=== PATIENT | female | born 1995 | race African-American/Black ===

== ENCOUNTER 2016-08-09 15:34 | Emergency (ER) | payer OTHER ==
--- NOTE | 2016-08-09 16:03 | ED ---
General Adult HPI - General Chief complaint: Urogenital Stated complaint: Female Time Seen by Provider: 08/09/16 15:56 Source: patient, RN notes reviewed Mode of arrival: ambulatory Limitations: no limitations - History of Present Illness Initial comments: Patient's 21-year-old female who presents emergency room today with her children chief complaint of dysuria. She does also admit to some discomfort and "dryness" in the vaginal area. Patient does admit that she is somewhat concerned about possible STDs. Never had this in the past. Denies any other complaints. Denies any pain other than during urination. Patient denies any other symptoms. Patient denies any recent fever, chills, shortness of breath, chest pain, back pain, abdominal pain, nausea or vomiting, numbness or tingling , dysuria or hematuria, constipation or diarrhea, headaches or visual changes, or any other complaints. - Related Data Home Medications Medication Instructions Recorded Confirmed Clonidine (Unknown Dose) 1 tab PO DAILY 08/09/16 08/09/16 Lisinopril [Zestril] 5 mg PO DAILY 08/09/16 08/09/16 Previous Rx's Medication Instructions Recorded Nitrofurantoin Monohyd/M-Cryst 100 mg PO Q12HR #14 cap 08/09/16 [Macrobid] Allergies Allergy/AdvReac Type Severity Reaction Status Date / Time carrot Allergy Unknown Verified 08/09/16 16:01 grass pollen Allergy Unknown Verified 08/09/16 16:01 pollen extracts Allergy Unknown Verified 08/09/16 16:01 tree and shrub pollen Allergy Unknown Verified 08/09/16 16:01 Review of Systems ROS Statement: Those systems with pertinent positive or pertinent negative responses have been documented in the HPI. ROS Other: All systems not noted in ROS Statement are negative. Past Medical History Past Medical History: No Reported History History of Any Multi-Drug Resistant Organisms: None Reported Past Surgical History: Tonsillectomy Past Psychological History: No Psychological Hx Reported Smoking Status: Never smoker Past Alcohol Use History: None Reported Past Drug Use History: None Reported General Exam - General Exam Comments Initial Comments: General: The patient is awake and alert, in no distress, and does not appear acutely ill. Eye: Pupils are equal, round and reactive to light, extra-ocular movements are intact. No nystagmus. There is normal conjunctiva bilaterally. No signs of icterus. Ears, nose, mouth and throat: There are moist mucous membranes and no oral lesions. Neck: The neck is supple, there is no tenderness or JVD. Cardiovascular: There is a regular rate and rhythm. No murmur, rub or gallop is appreciated. Respiratory: Lungs are clear to auscultation, respirations are non-labored, breath sounds are equal. No wheezes, stridor, rales, or rhonchi. Gastrointestinal: Soft, non-distended, non-tender abdomen without masses or organomegaly noted. There is no rebound or guarding present. No CVA tenderness. Bowel sounds are unremarkable. Musculoskeletal: Normal ROM, no tenderness. Strength 5/5. Sensation intact. Pulses equal bilaterally 2+. Neurological: A&O x 3. CN II-XII intact, There are no obvious motor or sensory deficits. Coordination appears grossly intact. Speech is normal. Skin: Skin is warm and dry and no rashes or lesions are noted. Psychiatric: Cooperative, appropriate mood & affect, normal judgment. Limitations: no limitations External exam: Present: normal external exam ([employer] Roxy present for exam.) Speculum exam: Present: normal speculum exam. Absent: cervical discharge, vaginal bleeding, foreign body By manual exam: Present: normal by manual exam. Absent: cervical motion tenderness, adnexal tenderness, adnexal mass Course Vital Signs 08/09/16 15:44 Temperature 99 F Pulse Rate 92 Respiratory 20 Rate Blood Pressure 177/103 O2 Sat by Pulse 100 Oximetry Medical Decision Making - Medical Decision Making Patient's urinalysis is reviewed and does show evidence for urinary tract infection. Patient does admit to dysuria will be started on antibiotics. Concern about STDs were discussed with patient. At this time patient has no discharge drainage or pain. She has been tested and cultures are pending. Patient will be discharged home on antibiotics cover for urinary tract infection. - Lab Data Lab Results 08/09/16 08/09/16 Range/Units 16:00 16:00 Urine Color Light Yellow Urine Appearance Clear (Clear) Urine pH 7.5 (5.0-8.0) Ur Specific Isabel 1.011 (1.001-1.035) Urine Protein Negative (Negative) Urine Glucose (UA) Negative (Negative) Urine Ketones Negative (Negative) Urine Blood Negative (Negative) Urine Nitrate Negative (Negative) Urine Bilirubin Negative (Negative) Urine Urobilinogen <2.0 (<2.0) mg/dL Ur Leukocyte Esterase Small H (Negative) Urine RBC 3 (0-5) /hpf Urine WBC 8 H (0-5) /hpf Ur Squamous Epith Cells 3 (0-4) /hpf Urine Bacteria Rare H (None) /hpf Urine Mucus Rare H (None) /hpf Urine HCG, Qual Not Detected (Not Detectd) Disposition Clinical Impression: UTI (urinary tract infection) Disposition: HOME SELF-CARE Condition: Good Instructions: Urinary Tract Infection in Women (ED) Additional Instructions: Please use medication as discussed. Please follow-up with family doctor in the next 2 days of symptoms have not improved. Please return to emergency room if the symptoms increase or worsen or for any other concerns. Prescriptions: Nitrofurantoin Monohyd/M-Cryst [Macrobid] 100 mg PO Q12HR #14 cap Referrals: None,Stated [Primary Care Provider] - 1-2 days Gurpreet Yanez MD [REFERRING] - 1-2 days Time of Disposition: 16:43
[2016-08-09 16:18] LABS: Appearance,Urine Clear (Clear); Bacteria,Urine Rare /hpf; Bilirubin,Urine Negative (Negative); Glucose,Urine (UA) Negative (Negative); Ketones,Urine Negative (Negative); Leukocyte Esterase,Urine Small (Negative); Mucus,Urine Rare /hpf; Nitrite,Urine Negative (Negative); PH, Urine 7.5 (5.0-8.0); Particle Count 1939; Protein,Urine Negative (Negative); RBC,Urine 3 /hpf (0-5); Specific Gravity,Urine 1.011 (1.001-1.035); Squamous Epithelial Cell,Urine 3 /hpf (0-4); UA Billing (MACRO vs. MICRO) MICRO; Urobilinogen,Urine <2.0 mg/dL (<2.0); WBC,Urine 8 /hpf (0-5)
[2016-08-09] MEDS ORDERED: cloNIDine HCL 0.1 MG TAB PO STA (16:59)
[2016-08-09 17:02] VITALS: BP 187/113; PULSE 97; RESP 16; TEMP 100.3
[2016-08-12 10:11] LABS: Chlamydia/GC Source Vaginal
== END 2016-08-09 17:13 | disposition home or self-care (01) ==
LOC: EC 15:34
DX: N39.0 Urinary tract infection, site not specified (principal); Z79.899 Other long term (current) drug therapy
CPT/HCPCS: 81001; 81025; 87070; 87086; 87205; 87491; 87591; 87808; 99283

== ENCOUNTER 2016-08-19 17:49 | Emergency (ER) | payer OTHER ==
[2016-08-19 18:23] VITALS: BP 154/73; PULSE 84; RESP 18; TEMP 98.4
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
[2016-08-19] MEDS ORDERED: ONDANSETRON ODT 4 MG TAB PO STA (19:40)
[2016-08-19] MEDS ORDERED: ACETAMINOPHEN TAB 500 MG TAB PO STA (19:40)
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
== END 2016-08-19 20:01 | disposition home or self-care (01) ==
LOC: EC 17:49
DX: M54.5 Low back pain (principal); M54.6 Pain in thoracic spine; M54.2 Cervicalgia; R51 Headache; Z79.899 Other long term (current) drug therapy; Z91.018 Allergy to other foods; Z91.09 Other allergy status, other than to drugs and biological substances; V49.50XA Passenger injured in collision with unspecified motor vehicles in traffic accident, initial encounter; W22.11XA Striking against or struck by driver side automobile airbag, initial encounter; Y92.410 Unspecified street and highway as the place of occurrence of the external cause
CPT/HCPCS: 70450; 72072; 72100; 72125; 99284

== ENCOUNTER 2017-03-21 10:43 | Emergency (ER) | payer OTHER ==
[2017-03-21 11:19] VITALS: RESP 16; TEMP 97.7
[2017-03-21] MEDS ORDERED: KETOROLAC 60 MG/2 ML VIAL IM STA (11:30)
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
[2017-03-21 12:31] VITALS: BP 166/108; PULSE 64
== END 2017-03-21 12:36 | disposition home or self-care (01) ==
LOC: EC 10:43
DX: M54.5 Low back pain (principal); Z91.048 Other nonmedicinal substance allergy status; Z91.018 Allergy to other foods
CPT/HCPCS: 99283 ×2; 96372 ×2; 72100; J1885

== ENCOUNTER 2018-02-23 07:21 | Emergency (ER) | payer OTHER ==
[2018-02-23 07:24] VITALS: PULSE 64; RESP 20; TEMP 98
--- NOTE | 2018-02-23 07:47 | ED ---
General Adult HPI - General Chief complaint: Extremity Injury, Lower Stated complaint: rt toe injury Time Seen by Provider: 02/23/18 07:32 Source: patient, RN notes reviewed Mode of arrival: ambulatory Limitations: no limitations - History of Present Illness Initial comments: Patient 22-year-old female presented to the emergency room today with a chief complaint of an injury to the right great toe that occurred yesterday. She does admit that she missed a few steps that she was walking down the stairs. States he landed awkwardly on the right foot. Doesn't to pain locally to the proximal right great toe. States worse with ambulation. Denies new complaints or symptoms. Patient denies any recent fever, chills, shortness of breath, chest pain, back pain, abdominal pain, nausea or vomiting, numbness or tingling , dysuria or hematuria, or any other complaints. - Related Data Home Medications Medication Instructions Recorded Confirmed No Known Home Medications 02/23/18 02/23/18 Allergies Allergy/AdvReac Type Severity Reaction Status Date / Time carrot Allergy Unknown Verified 02/23/18 08:12 cat dander Allergy Unknown Verified 02/23/18 08:12 dog dander Allergy Unknown Verified 02/23/18 08:12 grass pollen Allergy Unknown Verified 02/23/18 08:12 pollen extracts Allergy Unknown Verified 02/23/18 08:12 tree and shrub pollen Allergy Unknown Verified 02/23/18 08:12 Review of Systems ROS Statement: Those systems with pertinent positive or pertinent negative responses have been documented in the HPI. ROS Other: All systems not noted in ROS Statement are negative. Past Medical History Past Medical History: No Reported History History of Any Multi-Drug Resistant Organisms: None Reported Past Surgical History: Tonsillectomy Past Psychological History: No Psychological Hx Reported Smoking Status: Never smoker Past Alcohol Use History: Occasional Past Drug Use History: None Reported General Exam - General Exam Comments Initial Comments: General: The patient is awake and alert, in no distress, and does not appear acutely ill. Neck: The neck is supple, there is no tenderness or JVD. Musculoskeletal: Normal appearance of the foot no obvious deformity. Shows good range of motion. Mild tenderness at the proximal first phalanx of the right foot. Pedal pulse 2+ Sohan 5/5. Sensations intact. Neurological: A&O x 3. CN II-XII intact, There are no obvious motor or sensory deficits. Coordination appears grossly intact. Speech is normal. Skin: Skin is warm and dry and no rashes or lesions are noted. Psychiatric: Normal mood and affect. Limitations: no limitations Course Vital Signs 02/23/18 02/23/18 07:23 08:07 Temperature 98.0 F Pulse Rate 64 Respiratory 20 Rate Blood Pressure 193/118 163/99 O2 Sat by Pulse 100 Oximetry Medical Decision Making - Medical Decision Making X-ray reviewed and negative for any acute fracture dislocation. Results were discussed with patient. Patient advised ice elevate the affected area. Advised following up in 7-10 days for repeat x-rays if symptoms persist. Patient's blood pressure checked in the emergency room has been elevated. Was discussed with patient about following up with family doctor about blood pressure to have it rechecked. Disposition Clinical Impression: Toe sprain, Elevated blood pressure reading Disposition: HOME SELF-CARE Condition: Good Instructions: Foot Sprain (ED) Additional Instructions: Please follow-up family physician have blood pressure rechecked. Please continue to ice elevate the affected area. Please use Tylenol/ibuprofen for pain as needed. Please return to emergency room for any other concerns. Is patient prescribed a controlled substance at d/c from ED?: No Referrals: Alayna Lovell MD [Primary Care Provider] - 1-2 days Time of Disposition: 08:22
--- NOTE | 2018-02-23 08:04 | XR ---
EXAMINATION TYPE: XR foot complete RT DATE OF EXAM: 02/23/2018 COMPARISON: NONE HISTORY: 22-year-old female with fall and first distal metatarsal pain TECHNIQUE: 3 views FINDINGS: No acute fracture, subluxation, or dislocation seen. Subtalar joint is aligned. IMPRESSION: No acute osseous abnormality seen.
[2018-02-23 08:07] VITALS: BP 163/99
== END 2018-02-23 08:26 | disposition home or self-care (01) ==
LOC: EC 07:21
DX: S93.501A Unspecified sprain of right great toe, initial encounter (principal); R03.0 Elevated blood-pressure reading, without diagnosis of hypertension; Z91.018 Allergy to other foods; Z91.048 Other nonmedicinal substance allergy status; W10.9XXA Fall (on) (from) unspecified stairs and steps, initial encounter; Y93.01 Activity, walking, marching and hiking; Y92.009 Unspecified place in unspecified non-institutional (private) residence as the place of occurrence of the external cause
CPT/HCPCS: 99283